=== PATIENT | female | born 1995 | race Caucasian/White ===

== ENCOUNTER 2017-02-13 17:14 | Emergency (ER) | payer SELFPAY ==
[~2017-02-13] VITALS: Ht 165.1 cm; Wt 77.3 kg
[2017-02-13 17:18] VITALS: BP 164/101; PULSE 95; TEMP 98.8
[2017-02-13] MEDS ORDERED: BACTRIM DS 8001 TAB PO (17:24)
[2017-02-13] MEDS ORDERED: SINGULAIR 110 MG/TAB PO (17:24)
[2017-02-13] MEDS ORDERED: TRI-LO-SPRINTE1 EACH PO (17:25)
[2017-02-13] MEDS ORDERED: ZITHROMAX 250M250 MG PO (17:51)
== END 2017-02-13 18:01 | disposition home or self-care (01) ==
LOC: COL.ER 17:14
DX: R30.0 Dysuria (principal); Z20.89 Contact with and (suspected) exposure to other communicable diseases